=== PATIENT | male | born 1935 | race Caucasian/White ===

== ENCOUNTER 2018-01-17 08:28 | Day surgery (SDC) | payer MEDICARE, OTHER ==
[2018-01-11 12:50] LABS: BASOPHILS # (AUTO) 0.1 X10'3 (0-0.2); BASOPHILS % (AUTO) 1.5 % (0-1); EOSINOPHILS # (AUTO) 0.1 X10'3 (0-0.9); EOSINOPHILS % (AUTO) 1.2 % (0-6); HEMATOCRIT 42.4 % (42.0-52.0); HEMOGLOBIN 13.8 g/dl (14.0-17.9); LYMPHOCYTES % (AUTO) 10.5 % (21-51); MEAN CORPUSCULAR HEMOGLOBIN 29.8 PG (27.0-31.0); MEAN CORPUSCULAR HGB CONC 32.6 % (33.0-36.5); MEAN CORPUSCULAR VOLUME 91.5 FL (78-98); MEAN PLATELET VOLUME 6.6 FL (7.4-10.4); MONOCYTES # (AUTO) 0.5 X10'3 (0-0.9); MONOCYTES % (AUTO) 5.5 % (2-12); NEUTROPHILS # (AUTO) 7.6 X10'3 (1.8-7.7); NEUTROPHILS % (AUTO) 81.3 % (42-75); PLATELET COUNT 255 X10'3 (140-440); RED BLOOD COUNT 4.63 X10'6 (4.70-6.10); RED CELL DISTRIBUTION WIDTH 15.6 % (11.5-14.5); WHITE BLOOD COUNT 9.3 X10'3 (4.5-11.0)
[2018-01-11 13:02] LABS: ALANINE AMINOTRANSFERASE 19 U/L (12-78); ALBUMIN 3.5 G/DL (3.4-5.0); ALBUMIN/GLOBULIN RATIO 0.8 (1.1-1.5); ALKALINE PHOSPHATASE 121 IU/L (46-116); ANION GAP 10 (8-16); ASPARTATE AMINO TRANSFERASE 12 U/L (10-37); BILIRUBIN,TOTAL 0.4 MG/DL (0.1-1.0); BLOOD UREA NITROGEN 22 MG/DL (7-18); CHLORIDE 97 MMOL/L (99-107); CREATININE 1.05 MG/DL (0.60-1.10); GLUCOSE 120 MG/DL (70-104); SODIUM 133 MMOL/L (135-145); TOTAL CARBON DIOXIDE 25.9 MMOL/L (24-32); eGFR 68 ML/MIN
[2018-01-11 13:20] LABS: PARTIAL THROMBOPLASTIN TIME 32 SECONDS (22-32); PROTHROMBIN TIME 10.3 SECONDS (9.0-12.0)
[~2018-01-17] VITALS: Ht 182.9 cm; Wt 84.6 kg
[2018-01-17] VITALS (13 sets, daily range): BP systolic 99–147; BP diastolic 59–81
[2018-01-17] MEDS ORDERED: nitroGLYCERIN 0.4mg SUBLingual tab SL PRN (09:15)
[2018-01-17] MEDS ORDERED: LORazepam 0.5 MG tablet PO PRN (09:15)
[2018-01-17] MEDS ORDERED: normal saline 1000ml 1,000 ML IV SCH ×2 (09:15→12:20)
[2018-01-17] MEDS ORDERED: diphenhydrAMINE 25mg capsule PO PRN (09:15)
[2018-01-17] MEDS ORDERED: HYDR-3973 PO (09:32)
[2018-01-17] MEDS ORDERED: OMEG-143 PO (09:32)
[2018-01-17] MEDS ORDERED: CYAN250014 PO (09:32)
[2018-01-17] MEDS ORDERED: CHOL10002 PO (09:32)
[2018-01-17] MEDS ORDERED: FLAX100032 PO (09:32)
[2018-01-17] MEDS ORDERED: VITA400C19 PO (09:32)
[2018-01-17] MEDS ORDERED: DIAZ-351 PO (09:32)
[2018-01-17] MEDS ORDERED: OMEG-166 PO (09:32)
[2018-01-17] MEDS ORDERED: CRAN300T PO (09:32)
[2018-01-17] MEDS ORDERED: IRBE1TAB31 PO (09:32)
[2018-01-17] MEDS ORDERED: MECL-111 PO (09:32)
[2018-01-17] MEDS ORDERED: midazolam 2 mg/2 ml injection ONE (10:49)
[2018-01-17] MEDS ORDERED: iohexol 350 MG/ML 50ML vial IV ONE ×3 (10:49→11:41)
[2018-01-17] MEDS ORDERED: fentaNYL/PF 50MCG/1 ML 2ML syringe ONE (10:49)
[2018-01-17] MEDS ORDERED: iohexol 350MG/ML 100ml bottle IV ONE (10:49)
[2018-01-17] MEDS ORDERED: LIDOcaine 1% (10mg/ml)w/preservative injection 20ml MDV ONE (10:49)
[2018-01-17] MEDS ORDERED: proCHLORperazine 10 MG/2 ml inj IV PRN (12:20)
[2018-01-17] MEDS ORDERED: ondansetron/PF 4mg/2ml inj IV PRN (12:20)
[2018-01-17] MEDS ORDERED: HYDROcodone/acetaminophen 5mg/325mg tablet PO PRN (12:20)
[2018-01-17] MEDS ORDERED: HYDROcodone/acetaminophen 10/325mg tab PO PRN (12:20)
[2018-01-17] MEDS ORDERED: OXAZEpam 15mg capsule PO PRN (12:20)
== END 2018-01-17 19:10 | disposition home or self-care (01) ==
LOC: SSTAY O 08:28
PROVIDERS: ATTEND Internal Medicine Cardiovascular Disease
DX: I25.10 Atherosclerotic heart disease of native coronary artery without angina pectoris (principal); I45.2 Bifascicular block; I10 Essential (primary) hypertension; E78.5 Hyperlipidemia, unspecified; J43.9 Emphysema, unspecified; N40.0 Benign prostatic hyperplasia without lower urinary tract symptoms; F10.10 Alcohol abuse, uncomplicated; F17.210 Nicotine dependence, cigarettes, uncomplicated; Z99.81 Dependence on supplemental oxygen; Z85.828 Personal history of other malignant neoplasm of skin; Z95.828 Presence of other vascular implants and grafts; Z79.891 Long term (current) use of opiate analgesic; Z79.899 Other long term (current) drug therapy; Z98.890 Other specified postprocedural states
CPT/HCPCS: 36415; 71046; 80053; 85025; 85610; 85730; 93005; 93458; 93567; 99152; 99153; A6257; J1644; J2001; J2250; J3010; J7030; Q0163; Q9967; 75630; A4620; C1760; C1769

== ENCOUNTER 2018-02-12 05:41 | Inpatient (IN) | payer MEDICARE, OTHER ==
[2018-02-06 12:49] LABS: CLARITY,URINE CLEAR (Clear); COLOR,URINE YELLOW (Yellow); GLUCOSE, URINE NEGATIVE (Neg); KETONES,URINE NEGATIVE (Neg); LEUKOCYTE ESTERASE ,URINE NEGATIVE (Neg); NITRITES, URINE NEGATIVE (Neg); OCCULT BLOOD,URINE NEGATIVE (Neg); PROTEIN,URINE NEGATIVE (Neg); UROBILINOGEN,URINE 0.2 E.U/dL (0.2-1.0)
[2018-02-06 12:53] LABS: UA COLLECTION TYPE VOIDED
[2018-02-06 14:00] LABS: ABG BASE EXCESS 3.2 mmol/L (-2.0-3.0); ABG HCO3 26.5 mmol/L (22.0-26.0); ABG OXYGEN SATURATION 92.4 % (95-98); ABG PCO2 (T) 36.1 mmHg (35.0-48.0); ABG PH (T) 7.484 (7.350-7.450); ABG PO2 (T) 60.1 mmHg (83-108); ALLEN'S TEST Positive; FCOHb 1.2 % (0.5-1.5); FMetHb 0.3 % (0.3-1.12); TOTAL HEMOGLOBIN 12.7 G/dl (14.0-18.0)
[2018-02-06 16:18] LABS: BASOPHILS % (AUTO) 0.6 % (0-1); EOSINOPHILS # (AUTO) 0.4 X10'3 (0-0.9); EOSINOPHILS % (AUTO) 5.9 % (0-6); LYMPHOCYTES # (AUTO) 1.1 X10'3 (1.1-4.8); MEAN CORPUSCULAR HEMOGLOBIN 29.4 PG (27.0-31.0); MEAN CORPUSCULAR HGB CONC 32.4 % (33.0-36.5); MEAN CORPUSCULAR VOLUME 90.7 FL (78-98); MEAN PLATELET VOLUME 6.6 FL (7.4-10.4); MONOCYTES # (AUTO) 0.5 X10'3 (0-0.9); MONOCYTES % (AUTO) 6.8 % (2-12); NEUTROPHILS % (AUTO) 71.7 % (42-75); PRE OP HEMATOCRIT 39.5 % (42.0-52.0); PRE OP HEMOGLOBIN 12.8 g/dL (14.0-17.9); PRE OP PLATELET COUNT 315 X10'3 (140-440); RED BLOOD COUNT 4.35 X10'6 (4.70-6.10); RED CELL DISTRIBUTION WIDTH 15.8 % (11.5-14.5)
[2018-02-06 16:33] LABS: HEMOGLOBIN A1C 6.8 % (4.5-6.2)
[2018-02-06 16:35] LABS: ALBUMIN 3.1 G/DL (3.4-5.0); ALBUMIN/GLOBULIN RATIO 0.6 (1.1-1.5); ALKALINE PHOSPHATASE 128 IU/L (46-116); BLOOD UREA NITROGEN 28 MG/DL (7-18); BUN/CREATININE RATIO 27.5 (5.4-32.0); CALCIUM 9.8 MG/DL (8.5-10.1); CHLORIDE 100 MMOL/L (99-107); CREATININE 1.02 MG/DL (0.60-1.10); PRE OP ALT 30 U/L (30-65); PRE OP ANION GAP 5 (8-16); PRE OP AST 12 U/L (10-37); PRE OP BILIRUB, TOTAL 0.2 MG/DL (0.0-1.0); PRE OP GLUCOSE 106 MG/DL (70-104); PRE OP POTASSIUM 3.9 MMOL/L (3.4-5.1); PRE OP SODIUM 138 MMOL/L (135-145); TOTAL PROTEIN 7.9 G/DL (6.4-8.2); eGFR 70 ML/MIN
[2018-02-12] VITALS (13 sets, daily range): BP systolic 112–148; BP diastolic 51–82
[~2018-02-12] VITALS: Ht 182.9 cm; Wt 88.7 kg
[~2018-02-12 05:41] MED LIST: ASCO1TAB13 PO; CHOL10002 PO; CYAN250014 PO; DIAZ-351 PO; HYDR-3973 PO; IRBE1TAB31 PO; MECL-111 PO; VANCOMYCIN INJ 1000 MG in NORMAL SALINE 250ml IV.SOLN IV ONE; VARE0.5T PO; albuterol 2.5 MG/3 ML nebule NEB ONE; cefazolin/dext.iso 2gm/50ml 50 ML IV ONE; dextrose 50%-water 50ml dispensing syringe IV PRN; ringers solution, lacted 1,000 ML IV SCH
[2018-02-12] MEDS ORDERED: LIDOcaine 1% (10mg/ml) 2ml vial ONE (05:46)
[2018-02-12] MEDS ORDERED: ipratropium/albuterol 3ml nebule IH ONE (06:00)
[2018-02-12] MEDS ORDERED: LORazepam 2 mg/ml vial IV ONE (06:00)
[2018-02-12] MEDS ORDERED: famotidine 20mg tablet PO ONE (06:00)
[2018-02-12] MEDS: insulin regular, human 100 UNIT in normal saline 100ml IV soln 99 ML IV SCH ×4 (06:00→13:04)
[2018-02-12] MEDS ORDERED: metoprolol tartrate 12.5mg (1/2 tablet) PO ONE (06:00)
[2018-02-12] MEDS ORDERED: mupirocin 2% nasal ointment 1gm UD NS ONE (06:00)
[2018-02-12] MEDS ORDERED: nitroGLYCERIN in D5W 50mg/250ml (Tridil) infusion IV ONE (06:43)
[2018-02-12] MEDS ORDERED: papaverine 30 mg/ml 2ml inj. ONE (06:43)
[2018-02-12] MEDS ORDERED: sevoflurane 250ml liquid IH ONE (06:43)
[2018-02-12] MEDS ORDERED: INSULIN R 100 UNIT in NS 100ML (1 UNIT/1 ML) BAG IV ONE (06:43)
[2018-02-12] MEDS ORDERED: heparin 10,000 units/1 ML INJ ONE ×2 (06:43→09:00)
[2018-02-12] MEDS ORDERED: DOPamine/D5W 400mg/250ml bag IV ONE (06:43)
[2018-02-12] MEDS ORDERED: aminocaproic acid 250 MG/1 ML inj. ONE ×2 (06:43→09:00)
[2018-02-12] MEDS ORDERED: MIDAZolam 1mg/ml 10ml vial ONE (06:48)
[2018-02-12] MEDS ORDERED: rocuronium 10mg/ml inj IV ONE ×3 (06:48→08:06)
[2018-02-12] MEDS ORDERED: SUFENTANIL CITRATE 50 MCG/ML 2ml ampule IV ONE (06:48)
[2018-02-12] MEDS ORDERED: propofol inj 20 ML IV ONE (06:48)
[2018-02-12] MEDS ORDERED: heparin 10,000 units/1 ML INJ IR ONE (07:37)
[2018-02-12] MEDS ORDERED: papaverine 30 mg/ml 2ml inj. IA ONE (07:38)
[2018-02-12 07:46] LABS: ABG BASE EXCESS -5.8 mmol/L (-2.0-3.0); ABG HCO3 20.4 mmol/L (22.0-26.0); ABG OXYGEN SATURATION 99.4 % (95-98); ABG PCO2 42.7 mmHg (35.0-45.0); ABG PH 7.296 (7.350-7.450); ABG PO2 236.8 mmHg (60.0-100.0); CL (ABG) 102 mmol/L (99-107); FCOHb 0.8 % (0.5-1.5); FMetHb 0.3 % (0.3-1.12); FO2Hb 98.3 % (94-100); GLUCOSE (ABG) 112 mg/dl (70-105); IONIZED CA (ABG) 1.19 mmol/L (1.03-1.32); K (ABG) 4.2 mmol/L (3.3-5.1); NA (ABG) 136 mmol/L (135-145); TOTAL HEMOGLOBIN 10.7 G/dl (14.0-18.0)
[2018-02-12 08:36] LABS: ACT @ 1.70 U 357 SEC (193-297); ACT @ 2.84 U 506 SEC (260-420); BASELINE ACT 158 SEC (101-148); PATIENT WEIGHT 84.0k KG
[2018-02-12 09:00] LABS: ABG BASE EXCESS -2.5 mmol/L (-2.0-3.0); ABG HCO3 23.2 mmol/L (22.0-26.0); ABG OXYGEN SATURATION 99.3 % (95-98); ABG PCO2 44.2 mmHg (35.0-45.0); ABG PH 7.338 (7.350-7.450); ABG PO2 353.9 mmHg (60.0-100.0); CL (ABG) 101 mmol/L (99-107); FCOHb 0.5 % (0.5-1.5); FMetHb 0.1 % (0.3-1.12); FO2Hb 98.7 % (94-100); GLUCOSE (ABG) 135 mg/dl (70-105); IONIZED CA (ABG) 1.06 mmol/L (1.03-1.32); K (ABG) 6.1 mmol/L (3.3-5.1); NA (ABG) 128 mmol/L (135-145); TOTAL HEMOGLOBIN 8.9 G/dl (14.0-18.0)
[2018-02-12] MEDS ORDERED: phenylephrine 10mg/ml inj. ONE (09:00)
[2018-02-12] MEDS ORDERED: albumin (human) 25% 100 ML IV solution IV ONE (09:00)
[2018-02-12] MEDS ORDERED: methylPREDNISolone sod succ 1000mg vial ONE (09:00)
[2018-02-12] MEDS ORDERED: heparin 1,000 units/ml 10ml inj ONE (09:00)
[2018-02-12] MEDS ORDERED: magnesium sulf 1 GM/2 ML ONE (09:00)
[2018-02-12] MEDS ORDERED: sodium bicarbonate (8.4%) 1 mEq/ml syringe ONE (09:00)
[2018-02-12] MEDS ORDERED: calcium chloride 100 MG/1 ML inj IV ONE (09:00)
[2018-02-12] MEDS ORDERED: potassium Cl 2 mEq/ml inj IV ONE (09:00)
[2018-02-12] MEDS ORDERED: LIDOcaine 2% (20 mg/ml) 5ml cardiac syringe ONE (09:00)
[2018-02-12 09:26] LABS: ABG BASE EXCESS VENOUS -0.9 mmol/L; ABG HCO3 VENOUS 25.2 mmol/L; ABG PCO2 VENOUS 49.1 mmHg; ABG PO2 VENOUS 58.2 mmHg; CL (ABG) 101 mmol/L (99-107); FCOHb VENOUS 1.1 %; FHHb VENOUS 11.8 %; FMetHb VENOUS 0.2 %; FO2Hb VENOUS 86.9 %; GLUCOSE (ABG) 164 mg/dl (70-105); IONIZED CA (ABG) 1.04 mmol/L (1.03-1.32); K (ABG) 5.8 mmol/L (3.3-5.1); NA (ABG) 128 mmol/L (135-145); TOTAL HEMOGLOBIN 8.8 G/dl (14.0-18.0)
[2018-02-12 09:51] LABS: ABG BASE EXCESS -2.3 mmol/L (-2.0-3.0); ABG HCO3 22.3 mmol/L (22.0-26.0); ABG OXYGEN SATURATION 99.5 % (95-98); ABG PH 7.397 (7.350-7.450); ABG PO2 387.7 mmHg (60.0-100.0); CL (ABG) 101 mmol/L (99-107); FMetHb 0.2 % (0.3-1.12); FO2Hb 98.3 % (94-100); GLUCOSE (ABG) 156 mg/dl (70-105); IONIZED CA (ABG) 1.02 mmol/L (1.03-1.32); K (ABG) 5.5 mmol/L (3.3-5.1); NA (ABG) 129 mmol/L (135-145); TOTAL HEMOGLOBIN 8.3 G/dl (14.0-18.0)
[2018-02-12 10:26] LABS: ABG BASE EXCESS -3.3 mmol/L (-2.0-3.0); ABG HCO3 21.3 mmol/L (22.0-26.0); ABG OXYGEN SATURATION 99.5 % (95-98); ABG PCO2 36.1 mmHg (35.0-45.0); ABG PH 7.389 (7.350-7.450); ABG PO2 443.7 mmHg (60.0-100.0); CL (ABG) 99 mmol/L (99-107); FCOHb 1.3 % (0.5-1.5); FMetHb 0.4 % (0.3-1.12); FO2Hb 97.8 % (94-100); GLUCOSE (ABG) 131 mg/dl (70-105); IONIZED CA (ABG) 1.37 mmol/L (1.03-1.32); K (ABG) 5.2 mmol/L (3.3-5.1); NA (ABG) 129 mmol/L (135-145); TOTAL HEMOGLOBIN 7.5 G/dl (14.0-18.0)
[2018-02-12 10:50] LABS: ABG BASE EXCESS -3.4 mmol/L (-2.0-3.0); ABG HCO3 22.8 mmol/L (22.0-26.0); ABG OXYGEN SATURATION 99.2 % (95-98); ABG PCO2 46.6 mmHg (35.0-45.0); ABG PH 7.307 (7.350-7.450); ABG PO2 340.4 mmHg (60.0-100.0); CL (ABG) 102 mmol/L (99-107); FCOHb 0.7 % (0.5-1.5); FMetHb 0.4 % (0.3-1.12); FO2Hb 98.1 % (94-100); GLUCOSE (ABG) 133 mg/dl (70-105); IONIZED CA (ABG) 1.22 mmol/L (1.03-1.32); K (ABG) 4.9 mmol/L (3.3-5.1); NA (ABG) 131 mmol/L (135-145); TOTAL HEMOGLOBIN 8.6 G/dl (14.0-18.0)
[2018-02-12] MEDS: sodium chloride 0.45% 1,000 ML IV SCH (11:34)
[2018-02-12] MEDS ORDERED: DOPamine 400mg/D5W 250ml 250 ML IV PRN (11:34)
[2018-02-12] MEDS ORDERED: niCARDipine-NS 40mg/200ml IVPB 200 ML IV PRN (11:34)
[2018-02-12] MEDS ORDERED: nitroGLYCERIN-Tridil 50MG/D5W 250 ML IV PRN (11:34)
[2018-02-12] MEDS ORDERED: dextrose 50%-water 50ml dispensing syringe IV PRN (11:35)
[2018-02-12] MEDS ORDERED: ondansetron/PF 4mg/2ml inj IV PRN (11:35)
[2018-02-12] MEDS ORDERED: acetaminophen 325mg tablet PO PRN (11:35)
[2018-02-12] MEDS ORDERED: insulin regular, human inj. 100 UNITS in normal saline 100ml IV soln 100 ML IV SCH ×2 (11:35)
[2018-02-12] MEDS ORDERED: potassium Cl 20mEq/100mL bag 100 ML IV PRN ×2 (11:35)
[2018-02-12] MEDS ORDERED: meclizine 12.5mg tablet PO PRN (11:35)
[2018-02-12] MEDS ORDERED: morphine 4 MG/ML inj SYRINge IV PRN (11:35)
[2018-02-12] MEDS ORDERED: magnesium 2GM in 50ml NS 50 ML IV PRN (11:35)
[2018-02-12] MEDS ORDERED: sodium phosphate inj. 30 MMOL in dextrose 5%-water 250 ML IV PRN (11:35)
[2018-02-12] MEDS ORDERED: metoclopramide 5 mg/ml inj IV PRN (11:35)
[2018-02-12] MEDS ORDERED: Neutra Phos packet PO PRN (11:35)
[2018-02-12] MEDS ORDERED: pantoprazole 40 MG vial IV ONE (11:35)
[2018-02-12] MEDS ORDERED: magnesium 4gm in 100ml NS 100 ML IV PRN (11:35)
[2018-02-12] MEDS ORDERED: sodium phosphate inj. 15 MMOL in dextrose 5%-water 150 ML IV PRN (11:35)
[2018-02-12] MEDS ORDERED: normal saline 250ml IV soln 250 ML IV PRN (11:35)
[2018-02-12] MEDS ORDERED: niCARDipine-NS 40mg/200ml IVPB 200 ML IV ONE (11:44)
[2018-02-12] MEDS ORDERED: morphine 4 MG/ML inj SYRINge ONE (11:45)
[2018-02-12 11:46] LABS: ABG BASE EXCESS -3.5 mmol/L (-2.0-3.0); ABG HCO3 23.3 mmol/L (22.0-26.0); ABG OXYGEN SATURATION 99.1 % (95-98); ABG PCO2 (T) 49.3 mmHg (35.0-48.0); ABG PH (T) 7.291 (7.350-7.450); ABG PO2 (T) 292.6 mmHg (83-108); FCOHb 0.3 % (0.5-1.5); FO2Hb 98.8 % (94-100); MINUTE VOLUME 10 L/min; PATIENT TEMPERATURE 36.6; PEEP 5 cm H2O; RESPIRATORY RATE 14 b/min; RESPIRATORY RATE (OBSERVED) 14 b/min; TIDAL VOLUME 600 mL; TOTAL HEMOGLOBIN 10.7 G/dl (14.0-18.0)
[2018-02-12 11:53] LABS: BASOPHILS % (AUTO) 0.3 % (0-1); EOSINOPHILS # (AUTO) 0.4 X10'3 (0-0.9); EOSINOPHILS % (AUTO) 2.6 % (0-6); HEMATOCRIT 29.8 % (42.0-52.0); HEMOGLOBIN 9.7 g/dl (14.0-17.9); LYMPHOCYTES # (AUTO) 0.8 X10'3 (1.1-4.8); LYMPHOCYTES % (AUTO) 5.1 % (21-51); MEAN CORPUSCULAR HEMOGLOBIN 29.4 PG (27.0-31.0); MEAN CORPUSCULAR HGB CONC 32.6 % (33.0-36.5); MEAN CORPUSCULAR VOLUME 90.3 FL (78-98); MEAN PLATELET VOLUME 6.2 FL (7.4-10.4); MONOCYTES # (AUTO) 0.5 X10'3 (0-0.9); MONOCYTES % (AUTO) 2.8 % (2-12); NEUTROPHILS # (AUTO) 14.5 X10'3 (1.8-7.7); NEUTROPHILS % (AUTO) 89.2 % (42-75); PLATELET COUNT 184 X10'3 (140-440); RED CELL DISTRIBUTION WIDTH 15.4 % (11.5-14.5); WHITE BLOOD COUNT 16.3 X10'3 (4.5-11.0)
[2018-02-12 12:06] LABS: INR 1.2 INR; PARTIAL THROMBOPLASTIN TIME 27 SECONDS (22-32); PROTHROMBIN TIME 11.8 SECONDS (9.0-12.0)
[2018-02-12 12:08] LABS: ALANINE AMINOTRANSFERASE 23 U/L (12-78); ALBUMIN 2.8 G/DL (3.4-5.0); ALKALINE PHOSPHATASE 75 IU/L (46-116); ANION GAP 8 (8-16); ASPARTATE AMINO TRANSFERASE 25 U/L (10-37); BILIRUBIN,TOTAL 0.3 MG/DL (0.1-1.0); BLOOD UREA NITROGEN 35 MG/DL (7-18); BUN/CREATININE RATIO 28.7 (5.4-32.0); CALCIUM 10.2 MG/DL (8.5-10.1); CHLORIDE 104 MMOL/L (99-107); CREATININE 1.22 MG/DL (0.60-1.10); GLUCOSE 131 MG/DL (70-104); MAGNESIUM 3.5 MG/DL (1.5-2.4); PHOSPHORUS 3.9 MG/DL (2.3-4.5); POTASSIUM 4.5 MMOL/L (3.5-5.1); SODIUM 138 MMOL/L (135-145); TOTAL CARBON DIOXIDE 25.9 MMOL/L (24-32); TOTAL PROTEIN 5.7 G/DL (6.4-8.2); eGFR 57 ML/MIN
[2018-02-12] MEDS: morphine 4 MG/ML inj SYRINge IV PRN ×9 (12:57→22:38)
[2018-02-12] MEDS: insulin Lispro (HumaLOG) vial - multi-dose SQ SCH ×2 (13:00→18:00)
[2018-02-12 13:21] LABS: ACTIVATED CLOTTING TIME 146 SEC (101-148)
[2018-02-12] MEDS: albumin (Human) 5% 250ml 250 ML IV PRN ×2 (16:09→16:22)
[2018-02-12] MEDS: ceFAZolin 1GM/D5W- ADD-VANTAGE 50 ML IV SCH ×2 (16:19→23:48)
[2018-02-12 17:21] LABS: ABG BASE EXCESS -5.5 mmol/L (-2.0-3.0); ABG PCO2 (T) 38.9 mmHg (35.0-48.0); ABG PH (T) 7.328 (7.350-7.450); ABG PO2 (T) 76.1 mmHg (83-108); MINUTE VOLUME 11 L/min; PATIENT TEMPERATURE 36.7; PEEP 5 cm H2O; RESPIRATORY RATE (OBSERVED) 14 b/min
[2018-02-12 17:29] LABS: BASOPHILS % (AUTO) 0 % (0-1); EOSINOPHILS # (AUTO) 0.3 X10'3 (0-0.9); EOSINOPHILS % (AUTO) 1.9 % (0-6); HEMATOCRIT 29.1 % (42.0-52.0); HEMOGLOBIN 9.6 g/dl (14.0-17.9); LYMPHOCYTES # (AUTO) 0.4 X10'3 (1.1-4.8); LYMPHOCYTES % (AUTO) 2.5 % (21-51); MEAN CORPUSCULAR HEMOGLOBIN 29.4 PG (27.0-31.0); MEAN CORPUSCULAR HGB CONC 32.9 % (33.0-36.5); MEAN CORPUSCULAR VOLUME 89.3 FL (78-98); MEAN PLATELET VOLUME 6.3 FL (7.4-10.4); MONOCYTES # (AUTO) 0.4 X10'3 (0-0.9); MONOCYTES % (AUTO) 2.4 % (2-12); NEUTROPHILS # (AUTO) 13.8 X10'3 (1.8-7.7); NEUTROPHILS % (AUTO) 93.2 % (42-75); PLATELET COUNT 200 X10'3 (140-440); RED BLOOD COUNT 3.26 X10'6 (4.70-6.10); RED CELL DISTRIBUTION WIDTH 15.3 % (11.5-14.5); WHITE BLOOD COUNT 14.8 X10'3 (4.5-11.0)
[2018-02-12 17:54] LABS: ALBUMIN 3.5 G/DL (3.4-5.0); ANION GAP 10 (8-16); BLOOD UREA NITROGEN 38 MG/DL (7-18); BUN/CREATININE RATIO 32.5 (5.4-32.0); CALCIUM 8.8 MG/DL (8.5-10.1); CHLORIDE 104 MMOL/L (99-107); CREATININE 1.17 MG/DL (0.60-1.10); GLUCOSE 164 MG/DL (70-104); MAGNESIUM 2.6 MG/DL (1.5-2.4); POTASSIUM 4.3 MMOL/L (3.5-5.1); SODIUM 140 MMOL/L (135-145); TOTAL CARBON DIOXIDE 26.2 MMOL/L (24-32); eGFR 60 ML/MIN
[2018-02-12] MEDS: potassium Cl 20mEq/100mL bag 100 ML IV PRN (18:30)
[2018-02-12] MEDS: docusate sod 100mg capsule PO SCH (18:33)
[2018-02-12] MEDS: vancomycin/NS 1 GM ADD-VANTAGE 250 ML IV SCH (20:31)
[2018-02-12] MEDS: mupirocin 2% nasal ointment 1gm UD NS SCH (20:32)
[2018-02-12] MEDS ORDERED: ipratropium/albuterol 3ml nebule NEB PRN (23:10)
[2018-02-13] VITALS (24 sets, daily range): BP systolic 104–146; BP diastolic 51–78
[2018-02-13 00:42] LABS: BASOPHILS % (AUTO) 0 % (0-1); EOSINOPHILS % (AUTO) 0 % (0-6); HEMATOCRIT 27.7 % (42.0-52.0); LYMPHOCYTES # (AUTO) 0.7 X10'3 (1.1-4.8); LYMPHOCYTES % (AUTO) 4.7 % (21-51); MEAN CORPUSCULAR HEMOGLOBIN 29.5 PG (27.0-31.0); MEAN CORPUSCULAR HGB CONC 32.5 % (33.0-36.5); MEAN CORPUSCULAR VOLUME 90.7 FL (78-98); MEAN PLATELET VOLUME 6.6 FL (7.4-10.4); MONOCYTES # (AUTO) 0.5 X10'3 (0-0.9); MONOCYTES % (AUTO) 3.3 % (2-12); NEUTROPHILS # (AUTO) 13.5 X10'3 (1.8-7.7); PLATELET COUNT 175 X10'3 (140-440); RED BLOOD COUNT 3.05 X10'6 (4.70-6.10); RED CELL DISTRIBUTION WIDTH 15.6 % (11.5-14.5); WHITE BLOOD COUNT 14.7 X10'3 (4.5-11.0)
[2018-02-13 00:57] LABS: ALANINE AMINOTRANSFERASE 28 U/L (12-78); ALBUMIN 3.2 G/DL (3.4-5.0); ALBUMIN/GLOBULIN RATIO 1.1 (1.1-1.5); ALKALINE PHOSPHATASE 84 IU/L (46-116); ANION GAP 9 (8-16); ASPARTATE AMINO TRANSFERASE 41 U/L (10-37); BILIRUBIN,TOTAL 0.3 MG/DL (0.1-1.0); BLOOD UREA NITROGEN 33 MG/DL (7-18); BUN/CREATININE RATIO 30.3 (5.4-32.0); CALCIUM 8.4 MG/DL (8.5-10.1); CHLORIDE 105 MMOL/L (99-107); CREATININE 1.09 MG/DL (0.60-1.10); GLUCOSE 137 MG/DL (70-104); MAGNESIUM 2.3 MG/DL (1.5-2.4); PHOSPHORUS 4.5 MG/DL (2.3-4.5); POTASSIUM 4.6 MMOL/L (3.5-5.1); SODIUM 140 MMOL/L (135-145); TOTAL CARBON DIOXIDE 26.2 MMOL/L (24-32); TOTAL PROTEIN 6.2 G/DL (6.4-8.2); eGFR 65 ML/MIN
[2018-02-13 01:12] LABS: INR 1.1 INR; PARTIAL THROMBOPLASTIN TIME 29 SECONDS (22-32); PROTHROMBIN TIME 10.7 SECONDS (9.0-12.0)
[2018-02-13] MEDS: morphine 4 MG/ML inj SYRINge IV PRN ×2 (01:13→03:23)
[2018-02-13] MEDS: HYDROcodone/acetaminophen 10/325mg tab PO PRN ×4 (04:31→18:29)
[2018-02-13] MEDS: ipratropium/albuterol 3ml nebule NEB SCH ×5 (07:36→23:00)
[2018-02-13] MEDS: docusate sod 100mg capsule PO SCH ×2 (07:50→19:56)
[2018-02-13] MEDS: vancomycin/NS 1 GM ADD-VANTAGE 250 ML IV SCH ×2 (07:50→19:56)
[2018-02-13] MEDS: metoprolol tartrate 12.5mg (1/2 tablet) PO SCH ×2 (07:51→19:56)
[2018-02-13] MEDS: vitamin D (cholecalciferol) 1,000 unit tablet PO SCH (07:51)
[2018-02-13] MEDS: cyanocobalamin 500mcg tablet PO SCH (07:51)
[2018-02-13] MEDS: mupirocin 2% nasal ointment 1gm UD NS SCH ×2 (07:52→19:57)
[2018-02-13] MEDS: atorvastatin 10mg tablet PO SCH (07:52)
[2018-02-13] MEDS: ceFAZolin 1GM/D5W- ADD-VANTAGE 50 ML IV SCH ×2 (07:52→17:17)
[2018-02-13] MEDS: aspirin 325mg tablet, delayed-release (Ecotrin) PO SCH (07:54)
[2018-02-13] MEDS: insulin Lispro (HumaLOG) vial - multi-dose SQ SCH ×3 (09:00→19:59)
[2018-02-13] MEDS: losartan 25mg tablet PO SCH (09:38)
[2018-02-13] MEDS ORDERED: dextrose 50%-water 50ml dispensing syringe IV PRN ×2 (17:40)
[2018-02-13] MEDS ORDERED: glucagon, human recombinant 1mg kit SUBCUT PRN (17:40)
[2018-02-13] MEDS ORDERED: dextrose ORAL solution 15 GM/59 ML bottle PO PRN ×2 (17:40)
[2018-02-13] MEDS: insulin glargine (Lantus) pen - multi-dose SQ SCH (21:49)
[2018-02-14] VITALS (24 sets, daily range): BP systolic 87–143; BP diastolic 50–74
[2018-02-14] MEDS: ceFAZolin 1GM/D5W- ADD-VANTAGE 50 ML IV SCH (00:14)
[2018-02-14] MEDS: HYDROcodone/acetaminophen 10/325mg tab PO PRN ×5 (02:19→23:18)
[2018-02-14 02:45] LABS: BASOPHILS % (AUTO) 0.3 % (0-1); EOSINOPHILS # (AUTO) 0.1 X10'3 (0-0.9); EOSINOPHILS % (AUTO) 0.7 % (0-6); HEMATOCRIT 26.6 % (42.0-52.0); HEMOGLOBIN 8.8 g/dl (14.0-17.9); LYMPHOCYTES # (AUTO) 1.3 X10'3 (1.1-4.8); MEAN CORPUSCULAR HEMOGLOBIN 29.6 PG (27.0-31.0); MEAN CORPUSCULAR HGB CONC 32.9 % (33.0-36.5); MEAN CORPUSCULAR VOLUME 89.9 FL (78-98); MEAN PLATELET VOLUME 6.7 FL (7.4-10.4); MONOCYTES % (AUTO) 7.4 % (2-12); NEUTROPHILS # (AUTO) 10.5 X10'3 (1.8-7.7); NEUTROPHILS % (AUTO) 81.6 % (42-75); PLATELET COUNT 178 X10'3 (140-440); RED BLOOD COUNT 2.96 X10'6 (4.70-6.10); RED CELL DISTRIBUTION WIDTH 15.7 % (11.5-14.5); WHITE BLOOD COUNT 12.9 X10'3 (4.5-11.0)
[2018-02-14 03:00] LABS: ALBUMIN 2.9 G/DL (3.4-5.0); ANION GAP 6 (8-16); BLOOD UREA NITROGEN 28 MG/DL (7-18); BUN/CREATININE RATIO 29.5 (5.4-32.0); CALCIUM 8.2 MG/DL (8.5-10.1); CHLORIDE 101 MMOL/L (99-107); CREATININE 0.95 MG/DL (0.60-1.10); GLUCOSE 134 MG/DL (70-104); PHOSPHORUS 2.6 MG/DL (2.3-4.5); POTASSIUM 4.5 MMOL/L (3.5-5.1); SODIUM 137 MMOL/L (135-145); TOTAL CARBON DIOXIDE 30.1 MMOL/L (24-32); eGFR 76 ML/MIN
[2018-02-14] MEDS: ipratropium/albuterol 3ml nebule NEB SCH ×6 (06:47→22:59)
[2018-02-14] MEDS: losartan 25mg tablet PO SCH (07:26)
[2018-02-14] MEDS: aspirin 325mg tablet, delayed-release (Ecotrin) PO SCH (07:26)
[2018-02-14] MEDS: cyanocobalamin 500mcg tablet PO SCH (07:26)
[2018-02-14] MEDS: docusate sod 100mg capsule PO SCH ×2 (07:26→19:32)
[2018-02-14] MEDS: atorvastatin 10mg tablet PO SCH (07:26)
[2018-02-14] MEDS: metoprolol tartrate 12.5mg (1/2 tablet) PO SCH ×2 (07:27→19:33)
[2018-02-14] MEDS: vitamin D (cholecalciferol) 1,000 unit tablet PO SCH (07:27)
[2018-02-14] MEDS: mupirocin 2% nasal ointment 1gm UD NS SCH (07:27)
[2018-02-14] MEDS: pantoprazole 40mg Tablet.DR PO SCH (07:27)
[2018-02-14] MEDS: insulin Lispro (HumaLOG) vial - multi-dose SQ SCH ×2 (09:25→21:55)
[2018-02-14] MEDS: sodium chloride 0.45% 1,000 ML IV SCH (11:41)
[2018-02-14] MEDS: insulin glargine (Lantus) pen - multi-dose SQ SCH (21:56)
[2018-02-15] VITALS (24 sets, daily range): BP systolic 93–133; BP diastolic 46–76
[2018-02-15 02:20] LABS: ALBUMIN 2.6 G/DL (3.4-5.0); ANION GAP 6 (8-16); BLOOD UREA NITROGEN 31 MG/DL (7-18); BUN/CREATININE RATIO 33.7 (5.4-32.0); CALCIUM 8.4 MG/DL (8.5-10.1); CHLORIDE 100 MMOL/L (99-107); CREATININE 0.92 MG/DL (0.60-1.10); GLUCOSE 116 MG/DL (70-104); MAGNESIUM 2.2 MG/DL (1.5-2.4); PHOSPHORUS 2.9 MG/DL (2.3-4.5); POTASSIUM 4.3 MMOL/L (3.5-5.1); SODIUM 134 MMOL/L (135-145); TOTAL CARBON DIOXIDE 28.2 MMOL/L (24-32); eGFR 79 ML/MIN
[2018-02-15 02:27] LABS: BASOPHILS % (AUTO) 0.2 % (0-1); EOSINOPHILS # (AUTO) 0.1 X10'3 (0-0.9); EOSINOPHILS % (AUTO) 0.5 % (0-6); HEMATOCRIT 25.4 % (42.0-52.0); HEMOGLOBIN 8.2 g/dl (14.0-17.9); LYMPHOCYTES # (AUTO) 0.7 X10'3 (1.1-4.8); LYMPHOCYTES % (AUTO) 4.7 % (21-51); MEAN CORPUSCULAR HEMOGLOBIN 29.3 PG (27.0-31.0); MEAN CORPUSCULAR HGB CONC 32.4 % (33.0-36.5); MEAN CORPUSCULAR VOLUME 90.3 FL (78-98); MEAN PLATELET VOLUME 6.8 FL (7.4-10.4); MONOCYTES % (AUTO) 6.4 % (2-12); NEUTROPHILS # (AUTO) 13.2 X10'3 (1.8-7.7); NEUTROPHILS % (AUTO) 88.2 % (42-75); PLATELET COUNT 193 X10'3 (140-440); RED BLOOD COUNT 2.81 X10'6 (4.70-6.10); RED CELL DISTRIBUTION WIDTH 15.5 % (11.5-14.5)
[2018-02-15] MEDS: ipratropium/albuterol 3ml nebule NEB SCH ×6 (02:58→23:21)
[2018-02-15] MEDS: potassium Cl 20mEq/100mL bag 100 ML IV PRN (04:52)
[2018-02-15] MEDS ORDERED: furosemide 40mg/4ml inj IV ONE (07:30)
[2018-02-15] MEDS: vitamin D (cholecalciferol) 1,000 unit tablet PO SCH (08:28)
[2018-02-15] MEDS: atorvastatin 10mg tablet PO SCH (08:28)
[2018-02-15] MEDS: losartan 25mg tablet PO SCH (08:29)
[2018-02-15] MEDS: pantoprazole 40mg Tablet.DR PO SCH (08:29)
[2018-02-15] MEDS: docusate sod 100mg capsule PO SCH ×2 (08:29→20:32)
[2018-02-15] MEDS: metoprolol tartrate 12.5mg (1/2 tablet) PO SCH ×2 (08:29→20:32)
[2018-02-15] MEDS: aspirin 325mg tablet, delayed-release (Ecotrin) PO SCH (08:30)
[2018-02-15] MEDS: cyanocobalamin 500mcg tablet PO SCH (08:30)
[2018-02-15] MEDS: insulin Lispro (HumaLOG) vial - multi-dose SQ SCH ×3 (09:16→20:40)
[2018-02-15] MEDS: HYDROcodone/acetaminophen 10/325mg tab PO PRN ×3 (09:54→20:33)
[2018-02-15] MEDS: magnesium hydroxide 30ml (MOM) UD suspension PO PRN (14:13)
[2018-02-15] MEDS: insulin glargine (Lantus) pen - multi-dose SQ SCH (20:41)
[2018-02-16] VITALS (24 sets, daily range): BP systolic 87–140; BP diastolic 38–68
[2018-02-16] MEDS: HYDROcodone/acetaminophen 10/325mg tab PO PRN ×3 (00:52→22:21)
[2018-02-16] MEDS: ipratropium/albuterol 3ml nebule NEB SCH ×6 (03:04→23:10)
[2018-02-16 04:03] LABS: BASOPHILS % (AUTO) 0.2 % (0-1); EOSINOPHILS # (AUTO) 0.1 X10'3 (0-0.9); EOSINOPHILS % (AUTO) 1.6 % (0-6); HEMATOCRIT 23.2 % (42.0-52.0); HEMOGLOBIN 7.6 g/dl (14.0-17.9); LYMPHOCYTES # (AUTO) 1.1 X10'3 (1.1-4.8); LYMPHOCYTES % (AUTO) 10.9 % (21-51); MEAN CORPUSCULAR HEMOGLOBIN 29.5 PG (27.0-31.0); MEAN CORPUSCULAR HGB CONC 32.9 % (33.0-36.5); MEAN CORPUSCULAR VOLUME 89.5 FL (78-98); MEAN PLATELET VOLUME 6.5 FL (7.4-10.4); MONOCYTES # (AUTO) 0.9 X10'3 (0-0.9); NEUTROPHILS # (AUTO) 7.5 X10'3 (1.8-7.7); NEUTROPHILS % (AUTO) 78.3 % (42-75); PLATELET COUNT 209 X10'3 (140-440); RED BLOOD COUNT 2.59 X10'6 (4.70-6.10); RED CELL DISTRIBUTION WIDTH 15.5 % (11.5-14.5); WHITE BLOOD COUNT 9.6 X10'3 (4.5-11.0)
[2018-02-16 04:16] LABS: ALBUMIN 2.3 G/DL (3.4-5.0); ANION GAP 6 (8-16); BLOOD UREA NITROGEN 34 MG/DL (7-18); BUN/CREATININE RATIO 33.3 (5.4-32.0); CALCIUM 8.1 MG/DL (8.5-10.1); CHLORIDE 101 MMOL/L (99-107); CREATININE 1.02 MG/DL (0.60-1.10); GLUCOSE 104 MG/DL (70-104); MAGNESIUM 2.4 MG/DL (1.5-2.4); PHOSPHORUS 3.4 MG/DL (2.3-4.5); SODIUM 136 MMOL/L (135-145); TOTAL CARBON DIOXIDE 29.1 MMOL/L (24-32); eGFR 70 ML/MIN
[2018-02-16] MEDS: cyanocobalamin 500mcg tablet PO SCH (07:27)
[2018-02-16] MEDS: vitamin D (cholecalciferol) 1,000 unit tablet PO SCH (07:27)
[2018-02-16] MEDS: aspirin 325mg tablet, delayed-release (Ecotrin) PO SCH (07:27)
[2018-02-16] MEDS: docusate sod 100mg capsule PO SCH ×2 (07:27→20:15)
[2018-02-16] MEDS: atorvastatin 10mg tablet PO SCH (07:27)
[2018-02-16] MEDS: pantoprazole 40mg Tablet.DR PO SCH (07:28)
[2018-02-16] MEDS: metoprolol tartrate 12.5mg (1/2 tablet) PO SCH ×2 (07:28→20:15)
[2018-02-16] MEDS: losartan 25mg tablet PO SCH (07:32)
[2018-02-16] MEDS: magnesium hydroxide 30ml (MOM) UD suspension PO PRN (07:32)
[2018-02-16] MEDS ORDERED: furosemide 40mg/4ml inj IV ONE (07:35)
[2018-02-16] MEDS ORDERED: magnesium citrate 296ml oral solution PO ONE (07:45)
[2018-02-16] MEDS ORDERED: aspirin 81mg tablet.DR PO SCH (08:00)
[2018-02-16] MEDS: insulin Lispro (HumaLOG) vial - multi-dose SQ SCH ×3 (09:15→20:20)
[2018-02-16] MEDS: sodium chloride 0.45% 1,000 ML IV SCH (11:34)
[2018-02-16] MEDS ORDERED: PEG 3350/Na sulf,bicarb,Cl/KCl oral sol 4 liter bottle PO ONE (16:40)
[2018-02-16] MEDS: budesonide 0.5mg/2ml UD nebule IH SCH (19:36)
[2018-02-16] MEDS: insulin glargine (Lantus) pen - multi-dose SQ SCH (21:30)
[2018-02-17] VITALS (24 sets, daily range): BP systolic 91–135; BP diastolic 48–72
[2018-02-17] MEDS: ipratropium/albuterol 3ml nebule NEB SCH ×6 (03:57→23:27)
[2018-02-17] MEDS: HYDROcodone/acetaminophen 10/325mg tab PO PRN ×4 (04:10→19:27)
[2018-02-17 06:02] LABS: BASOPHILS # (AUTO) 0.1 X10'3 (0-0.2); BASOPHILS % (AUTO) 0.6 % (0-1); EOSINOPHILS # (AUTO) 0.2 X10'3 (0-0.9); EOSINOPHILS % (AUTO) 1.8 % (0-6); HEMATOCRIT 23.6 % (42.0-52.0); HEMOGLOBIN 7.8 g/dl (14.0-17.9); LYMPHOCYTES % (AUTO) 11.8 % (21-51); MEAN CORPUSCULAR HEMOGLOBIN 29.4 PG (27.0-31.0); MEAN CORPUSCULAR HGB CONC 32.8 % (33.0-36.5); MEAN CORPUSCULAR VOLUME 89.6 FL (78-98); MONOCYTES # (AUTO) 0.8 X10'3 (0-0.9); MONOCYTES % (AUTO) 9.2 % (2-12); NEUTROPHILS # (AUTO) 6.7 X10'3 (1.8-7.7); NEUTROPHILS % (AUTO) 76.6 % (42-75); PLATELET COUNT 248 X10'3 (140-440); RED BLOOD COUNT 2.64 X10'6 (4.70-6.10); RED CELL DISTRIBUTION WIDTH 15.9 % (11.5-14.5); WHITE BLOOD COUNT 8.7 X10'3 (4.5-11.0)
[2018-02-17 06:53] LABS: ALBUMIN 2.3 G/DL (3.4-5.0); ANION GAP 6 (8-16); BLOOD UREA NITROGEN 34 MG/DL (7-18); BUN/CREATININE RATIO 35.4 (5.4-32.0); CALCIUM 8.1 MG/DL (8.5-10.1); CHLORIDE 99 MMOL/L (99-107); CREATININE 0.96 MG/DL (0.60-1.10); GLUCOSE 121 MG/DL (70-104); MAGNESIUM 2.6 MG/DL (1.5-2.4); PHOSPHORUS 3.4 MG/DL (2.3-4.5); POTASSIUM 3.8 MMOL/L (3.5-5.1); SODIUM 137 MMOL/L (135-145); TOTAL CARBON DIOXIDE 31.7 MMOL/L (24-32); eGFR 75 ML/MIN
[2018-02-17] MEDS: metoprolol tartrate 12.5mg (1/2 tablet) PO SCH (07:33)
[2018-02-17] MEDS: losartan 25mg tablet PO SCH (07:34)
[2018-02-17] MEDS: cyanocobalamin 500mcg tablet PO SCH (07:44)
[2018-02-17] MEDS: pantoprazole 40mg Tablet.DR PO SCH (07:44)
[2018-02-17] MEDS: aspirin 81mg tablet.DR PO SCH (07:44)
[2018-02-17] MEDS: vitamin D (cholecalciferol) 1,000 unit tablet PO SCH (07:44)
[2018-02-17] MEDS: docusate sod 100mg capsule PO SCH ×2 (07:44→19:26)
[2018-02-17] MEDS: atorvastatin 10mg tablet PO SCH (07:44)
[2018-02-17] MEDS: budesonide 0.5mg/2ml UD nebule IH SCH (07:45)
[2018-02-17] MEDS: insulin Lispro (HumaLOG) vial - multi-dose SQ SCH (19:38)
[2018-02-17] MEDS: BUDESONIDE 0.25 MG/2 ML AMPUL.NEB IH SCH (20:01)
[2018-02-17] MEDS: insulin glargine (Lantus) pen - multi-dose SQ SCH (21:29)
[2018-02-18] VITALS (25 sets, daily range): BP systolic 88–134; BP diastolic 47–69
[2018-02-18] MEDS: ipratropium/albuterol 3ml nebule NEB SCH ×5 (04:03→19:54)
[2018-02-18] MEDS: HYDROcodone/acetaminophen 10/325mg tab PO PRN ×5 (05:09→22:08)
[2018-02-18 06:52] LABS: BASOPHILS % (AUTO) 0.7 % (0-1); EOSINOPHILS # (AUTO) 0.3 X10'3 (0-0.9); EOSINOPHILS % (AUTO) 4.4 % (0-6); HEMATOCRIT 22.1 % (42.0-52.0); HEMOGLOBIN 7.3 g/dl (14.0-17.9); LYMPHOCYTES # (AUTO) 0.8 X10'3 (1.1-4.8); MEAN CORPUSCULAR HEMOGLOBIN 29.7 PG (27.0-31.0); MEAN CORPUSCULAR VOLUME 89.9 FL (78-98); MEAN PLATELET VOLUME 6.3 FL (7.4-10.4); MONOCYTES # (AUTO) 0.8 X10'3 (0-0.9); MONOCYTES % (AUTO) 10.5 % (2-12); NEUTROPHILS # (AUTO) 5.4 X10'3 (1.8-7.7); NEUTROPHILS % (AUTO) 73.4 % (42-75); PLATELET COUNT 282 X10'3 (140-440); RED BLOOD COUNT 2.46 X10'6 (4.70-6.10); RED CELL DISTRIBUTION WIDTH 15.2 % (11.5-14.5); WHITE BLOOD COUNT 7.4 X10'3 (4.5-11.0)
[2018-02-18 07:00] LABS: ALBUMIN 2.2 G/DL (3.4-5.0); ANION GAP 5 (8-16); BLOOD UREA NITROGEN 26 MG/DL (7-18); BUN/CREATININE RATIO 28.3 (5.4-32.0); CHLORIDE 98 MMOL/L (99-107); CREATININE 0.92 MG/DL (0.60-1.10); GLUCOSE 101 MG/DL (70-104); MAGNESIUM 2.7 MG/DL (1.5-2.4); PHOSPHORUS 3.4 MG/DL (2.3-4.5); SODIUM 135 MMOL/L (135-145); TOTAL CARBON DIOXIDE 31.8 MMOL/L (24-32); eGFR 79 ML/MIN
[2018-02-18] MEDS: BUDESONIDE 0.25 MG/2 ML AMPUL.NEB IH SCH ×2 (08:32→19:54)
[2018-02-18] MEDS: atorvastatin 10mg tablet PO SCH (09:06)
[2018-02-18] MEDS: cyanocobalamin 500mcg tablet PO SCH (09:06)
[2018-02-18] MEDS: losartan 25mg tablet PO SCH (09:06)
[2018-02-18] MEDS: docusate sod 100mg capsule PO SCH ×2 (09:07→20:00)
[2018-02-18] MEDS: aspirin 81mg tablet.DR PO SCH (09:07)
[2018-02-18] MEDS: vitamin D (cholecalciferol) 1,000 unit tablet PO SCH (09:07)
[2018-02-18] MEDS: pantoprazole 40mg Tablet.DR PO SCH (09:12)
[2018-02-18] MEDS: insulin Lispro (HumaLOG) vial - multi-dose SQ SCH ×2 (09:12→20:21)
[2018-02-18] MEDS: sodium chloride 0.45% 1,000 ML IV SCH (12:21)
[2018-02-18] MEDS: insulin glargine (Lantus) pen - multi-dose SQ SCH (20:23)
[2018-02-19] VITALS (11 sets, daily range): BP systolic 101–122; BP diastolic 48–66
[2018-02-19] MEDS: ipratropium/albuterol 3ml nebule NEB SCH ×4 (00:09→12:29)
[2018-02-19] MEDS: HYDROcodone/acetaminophen 10/325mg tab PO PRN ×2 (04:07→08:35)
[2018-02-19] MEDS: pantoprazole 40mg Tablet.DR PO SCH (07:47)
[2018-02-19] MEDS: atorvastatin 10mg tablet PO SCH (07:48)
[2018-02-19] MEDS: losartan 25mg tablet PO SCH (07:48)
[2018-02-19] MEDS: docusate sod 100mg capsule PO SCH (07:48)
[2018-02-19] MEDS: aspirin 81mg tablet.DR PO SCH (07:48)
[2018-02-19] MEDS: vitamin D (cholecalciferol) 1,000 unit tablet PO SCH (07:49)
[2018-02-19] MEDS: cyanocobalamin 500mcg tablet PO SCH (07:49)
[2018-02-19] MEDS ORDERED: potassium chloride 10mEq CAPSULE.SA PO SCH (08:00)
[2018-02-19] MEDS: BUDESONIDE 0.25 MG/2 ML AMPUL.NEB IH SCH (09:13)
[2018-02-19] MEDS: insulin Lispro (HumaLOG) vial - multi-dose SQ SCH (09:41)
[2018-02-19 10:03] LABS: BASOPHILS % (AUTO) 0.5 % (0-1); EOSINOPHILS # (AUTO) 0.3 X10'3 (0-0.9); EOSINOPHILS % (AUTO) 3.5 % (0-6); HEMATOCRIT 26.3 % (42.0-52.0); HEMOGLOBIN 8.5 g/dl (14.0-17.9); LYMPHOCYTES # (AUTO) 0.8 X10'3 (1.1-4.8); LYMPHOCYTES % (AUTO) 8.3 % (21-51); MEAN CORPUSCULAR HEMOGLOBIN 29.2 PG (27.0-31.0); MEAN CORPUSCULAR HGB CONC 32.4 % (33.0-36.5); MEAN CORPUSCULAR VOLUME 89.9 FL (78-98); MEAN PLATELET VOLUME 6.5 FL (7.4-10.4); MONOCYTES # (AUTO) 0.9 X10'3 (0-0.9); MONOCYTES % (AUTO) 9.3 % (2-12); NEUTROPHILS # (AUTO) 7.7 X10'3 (1.8-7.7); NEUTROPHILS % (AUTO) 78.4 % (42-75); PLATELET COUNT 332 X10'3 (140-440); RED BLOOD COUNT 2.92 X10'6 (4.70-6.10); WHITE BLOOD COUNT 9.8 X10'3 (4.5-11.0)
[2018-02-19 10:15] LABS: ALBUMIN 2.4 G/DL (3.4-5.0); ANION GAP 9 (8-16); BLOOD UREA NITROGEN 28 MG/DL (7-18); BUN/CREATININE RATIO 27.5 (5.4-32.0); CALCIUM 8.5 MG/DL (8.5-10.1); CHLORIDE 96 MMOL/L (99-107); CREATININE 1.02 MG/DL (0.60-1.10); GLUCOSE 139 MG/DL (70-104); MAGNESIUM 2.8 MG/DL (1.5-2.4); PHOSPHORUS 4.1 MG/DL (2.3-4.5); POTASSIUM 4.3 MMOL/L (3.5-5.1); SODIUM 135 MMOL/L (135-145); TOTAL CARBON DIOXIDE 29.8 MMOL/L (24-32); eGFR 70 ML/MIN
[2018-02-19 10:19] LABS: PARTIAL THROMBOPLASTIN TIME 34 SECONDS (22-32); PROTHROMBIN TIME 10.6 SECONDS (9.0-12.0)
[2018-02-19] MEDS ORDERED: ATOR10TA PO (10:42)
[2018-02-19] MEDS ORDERED: ASPI-1071 PO (10:42)
== END 2018-02-19 11:50 | disposition home health service (06) | DRG 235 ==
LOC: PAS IN 05:41 → EDSTATUS 07:30 → ICU 2S 09:20
PROVIDERS: ADMIT Thoracic Surgery (Cardiothoracic Vascular Surgery); ATTEND Thoracic Surgery (Cardiothoracic Vascular Surgery)
PROC: 021209W Bypass Coronary Artery, Three Arteries from Aorta with Autologous Venous Tissue, Open Approach (ICD-10-PCS; 2018-02-12)
PROC: 06BP4ZZ Excision of Right Saphenous Vein, Percutaneous Endoscopic Approach (ICD-10-PCS; 2018-02-12)
PROC: B24BZZ4 Ultrasonography of Heart with Aorta, Transesophageal (ICD-10-PCS; 2018-02-12)
PROC: 5A1221Z Performance of Cardiac Output, Continuous (ICD-10-PCS; 2018-02-12)
PROC: 02L70CK Occlusion of Left Atrial Appendage with Extraluminal Device, Open Approach (ICD-10-PCS; 2018-02-12)
PROC: 02HV33Z Insertion of Infusion Device into Superior Vena Cava, Percutaneous Approach (ICD-10-PCS; 2018-02-12)
PROC: B548ZZA Ultrasonography of Superior Vena Cava, Guidance (ICD-10-PCS; 2018-02-12)
PROC: 02100Z9 Bypass Coronary Artery, One Artery from Left Internal Mammary, Open Approach (ICD-10-PCS; principal; 2018-02-12 06:43)
PROC: 30233N1 Transfusion of Nonautologous Red Blood Cells into Peripheral Vein, Percutaneous Approach (ICD-10-PCS; 2018-02-18)
DX: I25.10 Atherosclerotic heart disease of native coronary artery without angina pectoris (principal); J96.21 Acute and chronic respiratory failure with hypoxia; I50.32 Chronic diastolic (congestive) heart failure; G95.20 Unspecified cord compression; D62 Acute posthemorrhagic anemia; I11.0 Hypertensive heart disease with heart failure; G89.29 Other chronic pain; I70.0 Atherosclerosis of aorta; M54.5 Low back pain; K59.09 Other constipation; I73.9 Peripheral vascular disease, unspecified; M19.90 Unspecified osteoarthritis, unspecified site; J44.9 Chronic obstructive pulmonary disease, unspecified; N40.0 Benign prostatic hyperplasia without lower urinary tract symptoms; R94.39 Abnormal result of other cardiovascular function study; F17.210 Nicotine dependence, cigarettes, uncomplicated; Z99.81 Dependence on supplemental oxygen; Z79.899 Other long term (current) drug therapy; Z85.828 Personal history of other malignant neoplasm of skin
CPT/HCPCS: 0232T; 93312; 93325; 36415; 36600; 71045; 71046; 80048; 80053; 81003; 82330; 82435; 82803; 82947; 82948; 83036; 83735; 84100; 84132; 84295; 85018; 85025; 85347; 85384; 85610; 85730; 86885; 86900; 86901; 86920; 87070; 93005; 93880; 93971; 94002; 94060; 94640; 94667; 94668; 94760; 97110; 97116; 97162; 97530; A6255; A6258; A6402; A6449; A7000; A7048; C1751; C9113; G0378; J0690; J1265; J1644; J1815; J1940; J2001; J2060; J2150; J2250; J2270; J2370; J2440; J2704; J2930; J3370; J3475; J3480; J3490; J7030; J7120; J7626; J8597; P9016; P9045; P9047